=== PATIENT | female | born 1980 | race Hispanic/Latino ===

== ENCOUNTER 2017-01-04 08:48 | Emergency (ER) | payer BC, OTHER ==
[2017-01-04 08:57] VITALS: TEMP 98.4; BMI 32.1
[2017-01-04] MEDS ORDERED: Sodium Chloride 0.9% 1,000 ML IV STA (09:39)
--- NOTE | 2017-01-04 10:06 | ED PDOC ---
HPI: Abdomen Time Seen by Provider: 01/04/17 09:15 Chief Complaint (Nursing): Abdominal Pain Chief Complaint (Provider): Abdominal Pain History Per: Patient History/Exam Limitations: no limitations Onset/Duration Of Symptoms: Days (x5 days) Current Symptoms Are (Timing): Still Present Additional Complaint(s): 36 y/o female who presents to the emergency department with a complaint of nausea, vomiting (non bloody), and abdominal pain epigastric described as cramping x5 days. Denies diarrhea or any recent travel. No chest pain, dyspnea , weakness, headaches. No back pain. Of note, patient states she was sick in the past with similar episode and her GI doctor told her she had a bacterial overgrowth and was given antibiotics. Past Medical History Reviewed: Historical Data, Nursing Documentation, Vital Signs Vital Signs: Last Vital Signs Temp 98.4 F 01/04/17 08:56 Pulse 86 01/04/17 08:56 Resp 16 01/04/17 08:56 BP 147/86 01/04/17 08:56 Pulse Ox 99 01/04/17 10:09 - Medical History Other PMH: vomiting and infection in stomach - Surgical History Surgical History: No Surg Hx - Family History Family History: States: Unknown Family Hx - Social History Current smoker - smoking cessation education provided: No Alcohol: None Drugs: Denies - Home Medications Home Medications: Ambulatory Orders Medication Instructions Recorded Dicyclomine [Bentyl] 20 mg PO Q12 PRN #20 tab 04/11/15 Metoclopramide Hydrochloride 10 mg PO Q6 PRN #16 tab 04/11/15 [Reglan] Ondansetron [Zofran] 4 mg PO Q8H PRN #6 tab 01/04/17 - Allergies Allergies/Adverse Reactions: Allergies Allergy/AdvReac Type Severity Reaction Status Date / Time No Known Allergies Allergy Verified 04/10/15 19:21 Review of Systems ROS Statement: Except As Marked, All Systems Reviewed And Found Negative Gastrointestinal: Positive for: Nausea, Vomiting, Abdominal Pain (cramping). Negative for: Diarrhea Neurological: Negative for: Weakness, Numbness Physical Exam - Reviewed Nursing Documentation Reviewed: Yes Vital Signs Reviewed: Yes - Physical Exam Appears: Positive for: Non-toxic, No Acute Distress Head Exam: Positive for: ATRAUMATIC, NORMOCEPHALIC Skin: Positive for: Normal Color, Warm, Dry Eye Exam: Positive for: Normal appearance ENT: Positive for: Normal ENT Inspection Neck: Positive for: Normal, Painless ROM Cardiovascular/Chest: Positive for: Regular Rate, Rhythm Respiratory: Positive for: Normal Breath Sounds Gastrointestinal/Abdominal: Positive for: Soft, Tenderness (Mild epigastric ). Negative for: Normal Exam, Guarding, Rebound, Other (No periumbilical, left/ right upper or lower quadrant tenderness. No DVA tenderess) Back: Positive for: Normal Inspection. Negative for: L CVA Tenderness, R CVA Tenderness, Other (No flank pain) Extremity: Positive for: Normal ROM. Negative for: Tenderness, Pedal Edema Neurologic/Psych: Positive for: Alert, Oriented - Laboratory Results Result Diagrams: 01/04/17 09:56 01/04/17 09:56 Interpretation Of Abn Labs: bun 34 Interpretation Of Abnormal: 3.5 k - ECG O2 Sat by Pulse Oximetry: 99 (RA) Pulse Ox Interpretation: Normal - Progress ED Course And Treament: 1215: Stable. AAOx3. Pain free. Tolerated PO. Fu with pcp. Dehydration. Medical Decision Making Medical Decision Making: Time: 9:15 Initial impression: Abdominal Cramping Initial plan: --COMP Metabolic Panel --Lipase Stat --ED Urine (POC) --Urine Dip --CBC w/ differential --Sodium Chloride 1,000 ml IV 1,000 mls/hr --Zofran INJ 4mg IV --Revaluation Scribe Attestation: Documented by Barb Casanova, acting as a scribe for Jair Perez MD. Provider Scribe Attestation: All medical record entries made by the Scribe were at my direction and personally dictated by me. I have reviewed the chart and agree that the record accurately reflects my personal performance of the history, physical exam, medical decision making, and the department course for this patient. I have also personally directed, reviewed, and agree with the discharge instructions and disposition. Disposition - Clinical Impression Clinical Impression: Dehydration, Vomiting, Hypokalemia - Patient ED Disposition Is Patient to be Admitted: No Counseled Patient/Family Regarding: Studies Performed, Diagnosis, Need For Followup, Rx Given - Disposition Referrals: [facility] [Outside] - 01/05/17 Disposition: Routine/Home Disposition Time: 12:16 Condition: STABLE Additional Instructions: Return if not better in 3 days. Prescriptions: Ondansetron [Zofran] 4 mg PO Q8H PRN #6 tab PRN Reason: Nausea/Vomiting Instructions: Acute Nausea and Vomiting (ED), Hypokalemia (ED), Dehydration (ED )
[2017-01-04 10:08] LABS: BASO # 0.1 K/uL (0.0-0.2); BASO % 0.5 % (0.0-2.0); EOS % 0.3 % (0.0-4.0); HEMATOCRIT 43.6 % (34.0-47.0); LYMPH # 2.6 K/uL (1.0-4.3); LYMPH % 24.1 % (20.0-40.0); MEAN CELL VOLUME 89.5 fl (81.0-99.0); MEAN CORPUSCULAR HEMOGLOBIN 30.1 pg (27.0-31.0); MEAN CORPUSCULAR HGB CONC 33.6 g/dL (33.0-37.0); MEAN PLATELET VOLUME 7.9 fl (7.2-11.7); MONO # 0.8 K/uL (0.0-0.8); MONO % 6.9 % (0.0-10.0); NEUT # 7.5 K/uL (1.8-7.0); NEUT % 68.2 % (50.0-75.0); NRBC % 0.1 % (0.0-0.0); WHITE BLOOD COUNT 10.9 K/uL (4.8-10.8)
[2017-01-04 10:21] LABS: ALB/GLOB RATIO 1.3 (1.0-2.1); ALKALINE PHOSPHATASE 70 U/L (38-126); ALT/SGPT 31 U/L (9-52); AST/SGOT 25 U/L (14-36); BILIRUBIN,TOTAL 1.9 mg/dl (0.2-1.3); BLOOD UREA NITROGEN 34 mg/dl (7-17); CALCIUM 10.2 mg/dL (8.4-10.2); CARBON DIOXIDE 24 mmol/L (22-30); CHLORIDE 98 mmol/L (98-107); GFR AFRICAN-AMERICAN > 60; GLUCOSE,RANDOM 103 mg/dL (65-105); LIPASE 67 U/L (23-300); POTASSIUM 3.5 MMOL/L (3.6-5.0); SODIUM 139 mmol/l (132-148); TOTAL PROTEIN 8.6 G/DL (6.3-8.2)
[2017-01-04] MEDS ORDERED: Potassium Chloride 20 mEq ER Tab PO STA (12:15)
[2017-01-04] MEDS ORDERED: Potassium Chloride 20 mEq ER Tab PO ONE (12:19)
[2017-01-04 12:33] VITALS: BP 138/71; PULSE 72; RESP 18; O2SAT 100
== END 2017-01-04 12:34 | disposition home or self-care (01) ==
LOC: H.ER 08:48
DX: R11.10 Vomiting, unspecified (principal); E86.0 Dehydration; E87.6 Hypokalemia; R10.9 Unspecified abdominal pain
CPT/HCPCS: 80053; 81025; 83690; 85025; 96360; 99284; J2405; J7040

== ENCOUNTER 2017-07-01 05:27 | Observation (INO) | payer OTHER ==
[2017-07-01 05:27] VITALS: BMI 32.1
[2017-07-01] MEDS ORDERED: Sodium Chloride 0.9% 1,000 ML IV STA (05:47)
--- NOTE | 2017-07-01 05:52 | ED PDOC ---
HPI:Nausea, Vomiting, Diarrhea Time Seen by Provider: 07/01/17 05:41 Chief Complaint (Nursing): Abdominal Pain Chief Complaint (Provider): Vomiting History Per: Patient History/Exam Limitations: no limitations Onset/Duration Of Symptoms: Days (x3), Persistent Current Symptoms Are (Timing): Still Present Quality Of Discomfort: Burning, Other ("acidic") Associated Symptoms: Vomiting. denies: Diarrhea Additional Complaint(s): 37 year old female presents to ED with complaints of profuse vomiting x3 days and was diagnosed with H. Pylori x1 month ago. Patient notes that she has been on antibiotics for the past 2 weeks. Notes that over the last three days, vomit has become blood streaked. (+) epigastric pain, (-) diarrhea. Describes the pain as "burning and acidic" and notes that it radiates to her throat. PCP: None Past Medical History Reviewed: Historical Data, Nursing Documentation, Vital Signs Vital Signs: Last Vital Signs Temp 98.0 F 07/01/17 05:32 Pulse 75 07/01/17 05:32 Resp 16 07/01/17 05:32 BP 154/87 H 07/01/17 05:32 Pulse Ox 99 07/01/17 05:32 - Medical History PMH: Denies: No Chronic Diseases - Family History Family History: States: Unknown Family Hx - Home Medications Home Medications: Ambulatory Orders Medication Instructions Recorded Dicyclomine [Bentyl] 20 mg PO Q12 PRN #20 tab 04/11/15 Metoclopramide Hydrochloride 10 mg PO Q6 PRN #16 tab 04/11/15 [Reglan] Ondansetron [Zofran] 4 mg PO Q8H PRN #6 tab 01/04/17 - Allergies Allergies/Adverse Reactions: Allergies Allergy/AdvReac Type Severity Reaction Status Date / Time No Known Allergies Allergy Verified 04/10/15 19:21 Review of Systems ROS Statement: Except As Marked, All Systems Reviewed And Found Negative Gastrointestinal: Positive for: Vomiting, Abdominal Pain. Negative for: Diarrhea Physical Exam - Reviewed Nursing Documentation Reviewed: Yes Vital Signs Reviewed: Yes - Physical Exam Appears: Positive for: Non-toxic, No Acute Distress Skin: Positive for: Normal Color, Warm, Dry Eye Exam: Positive for: Normal appearance ENT: Positive for: Normal ENT Inspection Cardiovascular/Chest: Positive for: Regular Rate, Rhythm Respiratory: Positive for: Normal Breath Sounds. Negative for: Respiratory Distress Gastrointestinal/Abdominal: Positive for: Soft, Tenderness (epigastric tenderness) Extremity: Negative for: Deformity Neurologic/Psych: Positive for: Alert, Oriented. Negative for: Motor/Sensory Deficits - Laboratory Results Result Diagrams: 07/01/17 06:01 - ECG O2 Sat by Pulse Oximetry: 99 (RA) Pulse Ox Interpretation: Normal Medical Decision Making Medical Decision Makin Initial impression: gastroenteritis, gastritis Initial plan: * Labs * Lipase * UPreg * UDip * NS IV * Protonix Inj 40mg IVP * Zofran Inj 4mg IVP * Re-eval Scribe Attestation: Documented by Kalee Mann acting as a scribe for Julio Baumann MD. Scribe Attestation: All medical record entries made by the Scribe were at my direction and personally dictated by me. I have reviewed the chart and agree that the record accurately reflects my personal performance of the history, physical exam, medical decision making, and the department course for this patient. I have also personally directed, reviewed, and agree with the discharge instructions and disposition. Disposition - Clinical Impression Clinical Impression: Abdominal pain - Disposition Disposition: Transfer of Care Disposition Time: 07:00 Condition: STABLE Forms: [facility] ([place]) Patient Signed Over To: Elizabeth Aragon Handoff Comments: bloodwork and u/s
[2017-07-01 06:12] LABS: BASO % 0.5 % (0.0-2.0); HEMATOCRIT 39.3 % (34.0-47.0); LYMPH # 1.5 K/uL (1.0-4.3); LYMPH % 15.9 % (20.0-40.0); MEAN CELL VOLUME 90.1 fl (81.0-99.0); MEAN CORPUSCULAR HGB CONC 33.3 g/dL (33.0-37.0); MEAN PLATELET VOLUME 7.6 fl (7.2-11.7); MONO # 0.3 K/uL (0.0-0.8); MONO % 3.5 % (0.0-10.0); NEUT # 7.4 K/uL (1.8-7.0); NEUT % 80.1 % (50.0-75.0); RED CELL DISTRIBUTION WIDTH 13.3 % (11.5-14.5); WHITE BLOOD COUNT 9.3 K/uL (4.8-10.8)
[2017-07-01 06:24] LABS: ALB/GLOB RATIO 1.5 (1.0-2.1); ALKALINE PHOSPHATASE 64 U/L (38-126); ALT/SGPT 29 U/L (9-52); AST/SGOT 26 U/L (14-36); BILIRUBIN,TOTAL 1.8 mg/dl (0.2-1.3); BLOOD UREA NITROGEN 24 mg/dl (7-17); CARBON DIOXIDE 17 mmol/L (22-30); CHLORIDE 107 mmol/L (98-107); GFR AFRICAN-AMERICAN > 60; GLUCOSE,RANDOM 131 mg/dL (65-105); LIPASE 48 U/L (23-300); POTASSIUM 3.4 MMOL/L (3.6-5.0); SODIUM 145 mmol/l (132-148); TOTAL PROTEIN 8.3 G/DL (6.3-8.2)
--- NOTE | 2017-07-01 07:09 | ED PDOC ---
- Laboratory Results Result Diagrams: 07/01/17 06:01 07/01/17 06:01 - ECG O2 Sat by Pulse Oximetry: 99 (RA) Medical Decision Making Medical Decision Making: Received patient from Dr. Baumann. Patient is pending abdominal US for severe vomiting. She has received multiple doses of antiemetics since arrival. 10.[address] and US normal. Will discharge. Disposition Doctor Will See Patient In The: Office Counseled Patient/Family Regarding: Diagnosis, Need For Followup, Rx Given - Clinical Impression Clinical Impression: Abdominal pain, Nausea & vomiting - POA Present On Arrival: None - Disposition Disposition: Routine/Home Disposition Time: 10:45 Condition: STABLE
[2017-07-01] MEDS ORDERED: DiphenhydrAMINE 50 mg/ml Inj IV STA (09:00)
[2017-07-01] MEDS ORDERED: DiphenhydrAMINE 50 mg/ml Inj ONE (09:05)
--- NOTE | 2017-07-01 09:13 | US ---
HISTORY: RUQ pain, r/o gall stones, pancreatitis COMPARISON: Ultrasound abdomen and CT abdomen/ pelvis TECHNIQUE: 04/10/2015. FINDINGS: LIVER: Measures 17.5 cm in length. Normal echogenicity of the liver parenchyma. There is a 7 x 8 mm rounded echogenic lesion in the right hepatic lobe, inferiorly. This is a nonspecific finding. This may represent a small hemangioma. There is no other mass identified. The 1.3 cm mass identified in the more superior right hepatic lobe on CT examination of 04/2015 is not identified at this time. There is no biliary ductal dilatation. This corresponds to. GALLBLADDER: Unremarkable. No gallstones. COMMON BILE DUCT: Measures 4 mm. No stones. No dilatation. PANCREAS: Unremarkable as visualized. No mass. No ductal dilatation. OTHER FINDINGS: None . IMPRESSION: 8 mm nonspecific rounded echogenic mass in the inferior right hepatic lobe. No evidence of cholelithiasis or cholecystitis. Preliminary interpretation of this examination was reported by [employer] at 8:03 a.m. on 07/01/2017. There is concurrence of this report with the preliminary interpretation.
--- NOTE | 2017-07-01 10:10 | CT ---
PROCEDURE: CT Abdomen and Pelvis without intravenous contrast HISTORY: large blood, upper abd pain, vomiting COMPARISON: 04/10/2015 TECHNIQUE: Without contrast.. Contrast Dose: 0 Radiation dose: Total exam DLP = 932.08 mGy-cm. This CT exam was performed using one or more of the following dose reduction techniques: Automated exposure control, adjustment of the mA and/or kV according to patient size, and/or use of iterative reconstruction technique. FINDINGS: LOWER THORAX: Very small hiatal hernia. LIVER: Normal size, contour and attenuation. There is a 5 mm nonspecific low attenuation lesion in the inferior right hepatic lobe unchanged compared to the examination of 04/2015. A previously identified enhancing mass in the posterior right hepatic lobe on that earlier examination is not evident on this noncontrast study. There is no biliary dilatation. GALLBLADDER AND BILE DUCTS: Unremarkable. PANCREAS: Unremarkable. No gross lesion or ductal dilatation. SPLEEN: Unremarkable. ADRENALS: Unremarkable. No mass. KIDNEYS AND URETERS: Unremarkable. No hydronephrosis. No solid mass. VASCULATURE: Unremarkable. No aortic aneurysm. BOWEL: Mild sigmoid diverticulosis without evidence of diverticulitis. No bowel obstruction. No other abnormal bowel loops. APPENDIX: Unremarkable. Normal appendix. PERITONEUM: Unremarkable. No free fluid. No free air. LYMPH NODES: Unremarkable. No enlarged lymph nodes. BLADDER: Poorly distended. No gross abnormality. REPRODUCTIVE: Normal uterus. BONES: No acute fracture. OTHER FINDINGS: None. IMPRESSION: No acute abnormality. Incidental findings as above.
[2017-07-01 11:27] VITALS: BP 144/88; PULSE 66; RESP 18; TEMP 98; O2SAT 100
== END 2017-07-01 11:27 | disposition home or self-care (01) ==
LOC: H.ER 05:27 → H.EROBSV 07:09
PROVIDERS: ADMIT Emergency Medicine; ATTEND Emergency Medicine
DX: R10.9 Unspecified abdominal pain (principal); R11.2 Nausea with vomiting, unspecified
CPT/HCPCS: 74176; 76705; 80053; 81025; 83690; 85025; 96361; 96374; 96375; 99284; C9113; G0378; J1200; J1885; J2405; J2765; J7040